=== PATIENT | female | born 1965 | race Hispanic/Latino ===

== ENCOUNTER 2017-12-22 05:43 | Emergency (ER) | payer BC, SELFPAY ==
--- NOTE | 2017-12-22 08:02 | RAD ---
LEFT KNEE 4 VIEWS: Date: 12/22/17 HISTORY: Left knee pain and swelling. FINDINGS: Degenerative changes are present. No fracture, dislocation, or bony destruction is identified. No justine nt effusion is seen. IMPRESSION: Left knee osteoarthritis. POS: OFF
--- NOTE | 2017-12-22 09:30 | ULT ---
PRELIMINARY REPORT/[facility]/EMERGENTY AFTER-HOURS PROCEDURE US Duplex Left Lower Extremity Veins CLINICAL HISTORY: 52 years old, female; Pain; Leg, lower and other: Left knee pain TECHNIQUE: Real-time duplex ultrasound scan of the left lower extremity veins integrating B-mode twodimensional vascular structure, Doppler spectral analysis, color flow Doppler imaging and compression. COMPARISON: No relevant prior studies available. FINDINGS: Deep veins: Normal. No DVT in the visualized common femoral, femoral, proximal deep femoral, poplitea l or calf veins. The veins demonstrate normal color flow, are normally compressible, with normal phas ic flow and/or augmentation response. Superficial veins: Normal. No thrombus in the visualized great saphenous vein. Soft tissues: No acute findings. No popliteal cyst. IMPRESSION: Normal left lower extremity duplex venous ultrasound. Thank you for allowing us to participate in the care of your patient. Dictated and Authenticated by: Thomas Davis MD 12/22/2017 7:11 AM Central Time ([place] & [place]) FINAL REPORT ULTRASOUND WITH DOPPLER DUPLEX VENOUS LOWER EXTREMITY LEFT: CPT: 26105 ICD-10-PCS: [id number] HISTORY: [] TECHNIQUE: Color flow Doppler, spectral waveform analysis of pulsed Doppler, and lopez-scale imaging with nevin vitaly and augmentation, were used to evaluate the bilateral common femoral, femoral, popliteal, accounting instructor ior tibial, and superficial femoral, veins; and the proximal portions of the profunda femoral and gre ater saphenous, veins. FINDINGS: I agree with the above provided preliminary interpretation from [facility]. IMPRESSION: No deep venous thrombosis of left lower extremity demonstrated. POS: [facility]
== END 2017-12-22 06:42 | disposition home or self-care (01) ==
LOC: ERS 05:43
DX: M25.462 Effusion, left knee (principal); F32.9 Major depressive disorder, single episode, unspecified; F17.210 Nicotine dependence, cigarettes, uncomplicated; Z79.899 Other long term (current) drug therapy

== ENCOUNTER 2018-07-24 12:49 | Emergency (ER) | payer SELFPAY ==
[2018-07-24] MEDS ORDERED: Ketorolac Tromethamine 30 MG/ML VIAL ONE (13:58)
--- NOTE | 2018-07-24 14:58 | RAD ---
LUMBAR SPINE 2 VIEWS: HISTORY: Low back pain. FINDINGS: There are 5 lumbar-type vertebrae. Prominent leftward convex rotator scoliotic curvature of the lowe r lumbar spine. Vertebral body heights are maintained. There is disk space narrowing at the L3-4 an d L4-5 levels. Grade I degenerative spondylolisthesis at the L4-5 level. Prominent osteophytosis of the facets at the lowest 3 levels. No acute fracture or dislocation. Calcification over the arteri al structures. IMPRESSION: 1. Degenerative changes lower lumbar spine. No evidence of compression fracture. 2. Atherosclerosis. POS: [facility]
== END 2018-07-24 14:46 | disposition home or self-care (01) ==
LOC: ERS 12:49
DX: M43.16 Spondylolisthesis, lumbar region (principal); M51.36 Other intervertebral disc degeneration, lumbar region; G62.9 Polyneuropathy, unspecified; F17.210 Nicotine dependence, cigarettes, uncomplicated
CPT/HCPCS: 72100; 96372; J1885

== ENCOUNTER 2018-10-07 06:31 | Emergency (ER) | payer SELFPAY | END 2018-10-07 08:53 | disposition home or self-care (01) | LOC: ERS 06:31 | DX: J20.9 Acute bronchitis, unspecified (principal); F32.9 Major depressive disorder, single episode, unspecified; F17.210 Nicotine dependence, cigarettes, uncomplicated | CPT/HCPCS: 87081; 87430; 87804; 99283 ==

== ENCOUNTER 2019-09-04 20:13 | Emergency (ER) | payer SELFPAY | END 2019-09-04 22:29 | disposition home or self-care (01) | LOC: ERS 20:13 | DX: J06.9 Acute upper respiratory infection, unspecified (principal); F32.9 Major depressive disorder, single episode, unspecified; F17.210 Nicotine dependence, cigarettes, uncomplicated | CPT/HCPCS: 87804; 99283 ==

== ENCOUNTER 2019-10-17 19:17 | Emergency (ER) | payer SELFPAY ==
[2019-10-17] MEDS ORDERED: Lidocaine 1% w/Epinephrine 1:100K 20 ML VIAL ONE (20:16)
[2019-10-17] MEDS ORDERED: Adacel (T-DAP) 0.5 ML SYRINGE ONE (20:53)
== END 2019-10-17 21:46 | disposition home or self-care (01) ==
LOC: ERS 19:17
DX: L02.412 Cutaneous abscess of left axilla (principal); F31.9 Bipolar disorder, unspecified; F43.10 Post-traumatic stress disorder, unspecified; F17.210 Nicotine dependence, cigarettes, uncomplicated; Z23 Encounter for immunization
CPT/HCPCS: 10061; 90471; 90715

== ENCOUNTER 2019-10-23 00:15 | Emergency (ER) | payer SELFPAY ==
[2019-10-23 01:16] LABS: #Eosinphils 0.3 thou/uL (0.0-0.7); #Lymphocytes 1.4 thou/uL (1.20-3.40); #Monocytes 0.5 thou/uL (0.11-0.59); #Neutrophils 4.1 thou/uL (1.40-6.50); %Basophils 0.8 % (0.0-1.0); %Eosinophils 4.1 % (0.0-10.0); %Lymphocytes 21.7 % (21.0-51.0); %Monocytes 7.5 % (0.0-10.0); %Neutrophils 65.9 % (42.0-75.0); Hemoglobin 12.1 g/dL (12.0-16.0); Mean Corpuscular HGB CONC 32.5 g/dL (32.0-36.0); Mean Corpuscular Hemoglobin 31.4 pg (27.0-31.0); Mean Corpuscular Volume 96.7 fL (78.0-98.0); Mean Platelet Volume 8.1 fL (7.4-10.4); Platelet Count 240 thou/uL (130-400); RBC Distribution Width 11.6 % (11.5-14.5); Red Blood Cell (RBC) Count 3.86 mill/uL (4.20-5.40); White Blood Cell (WBC) Count 6.2 thou/uL (4.8-10.8)
[2019-10-23 01:38] LABS: ALT (SGPT) 12 U/L (8-55); AST (SGOT) 12 U/L (5-34); Alkaline Phosphatase 76 U/L (40-110); Anion Gap 13 mmol/L (10-20); BUN (Urea Nitrogen) 14 mg/dL (9.8-20.1); Bilirubin, Total 0.2 mg/dL (0.2-1.2); Calc. Creatinine Clearance 0 mL/min (70-130); Calcium 8.5 mg/dL (7.8-10.44); Carbon Dioxide 24 mmol/L (22-29); Chloride 107 mmol/L (98-107); Estimated GFR-MDRD 76; Globulin 2.4 g/dL (2.4-3.5); Glucose 122 mg/dL (70-105); Potassium 3.5 mmol/L (3.5-5.1); Protein, Total 5.4 g/dL (6.0-8.3); Sodium 140 mmol/L (136-145)
[2019-10-23] MEDS ORDERED: Lidocaine 1% w/Epinephrine 1:100K 20 ML VIAL ONE (01:38)
--- NOTE | 2019-10-23 07:59 | CT ---
PRELIMINARY REPORT/[facility]/EMERGENCY AFTER HOURS PROCEDURE PROCEDURE: CT Scan Abdomen and Pelvis with IV Contrast Material. HISTORY: Fever and abscess. TECHNIQUE: Axial images were performed with multiplanar reconstructions. The patient was given iodin ated contrast intravenously. The patient was not given oral contrast material. COMPARISONS: None . FINDINGS: Clear lung bases. Liver, spleen, adrenals, and pancreas show no abnormality. Kidneys show no obstruction or masses. Normal biliary tract. No abdominal ascites or pneumoperitoneum. Mild atherosclerosis aorta. No lymphadenopathy. No bowel obstruction or inflammation. Appendix is not visualized. Pelvis shows small amount of flui d in the cul-de-sac. Unremarkable reproductive organs and urinary bladder. No pelvic masses. Moderate stranding anterior pelvic wall bilaterally with 3.6 cm loculated fluid collection could repr esent seroma, hematoma, or abscess just to the RIGHT of midline at the level of the acetabula. No acute bony abnormality. IMPRESSION: Loculated fluid collection subcutaneous fat RIGHT paramedian region inferior anterior pelvic wall wit h moderate stranding could be related to abscess, hematoma, or seroma. Small amount of fluid in the cul-de-sac. No other significant abnormality identified. ELECTRONICALLY SIGNED BY: Cliff Kumar MD October 23, 2019 1:36:14 AM CDT This report is intended for review by the ordering physician only, in accordance of law. If you recei ve this report in error, please call [facility] at [phone]. FINAL REPORT EXAM: CT ABDOMEN AND PELVIS HISTORY: Abdominal pain COMPARISON: None. Procedure: Multiple contiguous axial images were obtained and a CT of the abdomen and pelvis with IV contrast. C oronal reformats were performed. FINDINGS: Lower Chest: within normal limits. Vessels: Normal caliber aorta Heart: Normal heart size. No significant pericardial fluid Abdomen: Portal vein:Patent Gallbladder: No calcified gallstones. Normal caliber wall. Liver: within normal limits. Pancreas: within normal limits. Spleen: within normal limits. Adrenals: within normal limits. Kidneys: Symmetric enhancement. No obstructive uropathy. Peritoneum: No ascites or free air, no fluid collection. Bowel: Limited evaluation due to the lack of oral contrast administration. No evidence of bowel obstr uction. Ileocecal junction is unremarkable. Normal caliber appendix. Scattered fecal material in a nondistended, nondilated colon. Mesentery and Retroperitoneum: No enlarged mesenteric or retroperitoneal lymph nodes. Abdominal Wall: There is subcutaneous fat stranding involving the anterior abdominal wall. There is a n ill-defined hypodense collection in the anterior abdominal wall, just superior to the abdominal rectus muscle measuring 2.4 x 4.5 cm. Abnormal attenuation of the fat appears to be confined to the s oft tissues along the anterior abdominal wall. No abnormal attenuation deep to the abdominal rectus muscles. Pelvis: Reproductive Organs: Reproductive organs are unremarkable. Pelvis: No mass, lymphadenopathy, free air or free fluid. Mildly enlarged bilateral inguinal lymph no david are presumed to be reactive. Bladder: within normal limits. Bones: within normal limits. IMPRESSION: 1. This report is in agreement with initial report by [facility]. 2. Abnormal attenuation involving the anterior abdominal wall with slightly ill-defined borders. Deve loping abscess versus phlegmon are differential considerations. Resolving hematoma cannot be entirely excluded. Additional edema involving the subcutaneous fat is noted anteriorly, extending roshni ng the anterior right lower abdominal soft tissues. Transcribed Date/Time: 10/23/2019 9:09 AM
[2019-10-23] MEDS ORDERED: Iopamidol-370 76% 500 ML 1 ML ONE (09:02)
== END 2019-10-23 02:30 | disposition home or self-care (01) ==
LOC: ERS 00:15
DX: L02.211 Cutaneous abscess of abdominal wall (principal); F43.10 Post-traumatic stress disorder, unspecified; F17.210 Nicotine dependence, cigarettes, uncomplicated
CPT/HCPCS: 10061; 36415; 74177; 80053; 85025; Q9967

== ENCOUNTER 2019-10-25 17:39 | Emergency (ER) | payer SELFPAY ==
[~2019-10-25 17:39] MED LIST: Iopamidol 370 76% 100 ML VIAL ONE
[2019-10-25] MEDS ORDERED: Vancomycin 1 GM/200 ML BAG ONE (17:56)
[2019-10-25] MEDS ORDERED: Clindamycin/D5W 900 mg/50 ml Premix Bag ONE (17:56)
[2019-10-25 18:06] LABS: Base Excess-Venous 0.7 mmol/L (-2.0 to 3.0); Bicarbonate (HCO3v) 25.3 mmol/L (22.0-28.0); CO2 Tension (PvCO2) 39.6 mmHg (40.0-50.0); Calcium, Ionized 1.13 mmol/L (See Comments:); Chloride 105 mmol/L (98-107); Hemoglobin - Calc 14.4 g/dL (12.0-16.0); Potassium 3.3 mmol/L (3.5-5.1); Sodium 143 mmol/L (138-145); T. Carbon Dioxide 26.5 mmol/L (22.0-28.0); vO2 Saturation-calc 73.2 % (60.0-85.0)
[2019-10-25 18:07] LABS: #Eosinphils 0.2 thou/uL (0.0-0.7); #Lymphocytes 1.6 thou/uL (1.20-3.40); #Monocytes 0.5 thou/uL (0.11-0.59); #Neutrophils 5.3 thou/uL (1.40-6.50); %Basophils 0.5 % (0.0-1.0); %Eosinophils 2.6 % (0.0-10.0); %Lymphocytes 21.3 % (21.0-51.0); %Neutrophils 68.6 % (42.0-75.0); Hemoglobin 14.4 g/dL (12.0-16.0); Mean Corpuscular HGB CONC 33.4 g/dL (32.0-36.0); Mean Corpuscular Volume 95.9 fL (78.0-98.0); Mean Platelet Volume 7.7 fL (7.4-10.4); Platelet Count 337 thou/uL (130-400); RBC Distribution Width 11.8 % (11.5-14.5); Red Blood Cell (RBC) Count 4.48 mill/uL (4.20-5.40); White Blood Cell (WBC) Count 7.7 thou/uL (4.8-10.8)
[2019-10-25 18:14] LABS: Bilirubin Negative (Negative); Blood, Urine Negative (Negative); Clarity Clear (Clear); Glucose, Urine (Dipstick) Normal (Negative); Leukocyte Negative Leu/uL (Negative); Nitrite Negative (Negative); Protein, Urine (Dipstick) Negative (Neg-Trace); Urobilinogen Normal mg/dL (Less than 2)
--- NOTE | 2019-10-25 18:15 | RAD ---
Chest one view HISTORY: Sepsis. FINDINGS: Cardiac silhouette is magnified by projection. Pulmonary vasculature is unremarkable. Lungs are well-inflated. No confluent airspace consolidation or evidence of pneumothorax. IMPRESSION : No active cardiopulmonary abnormalities are demonstrated.
[2019-10-25 18:25] LABS: ALT (SGPT) 13 U/L (8-55); AST (SGOT) 15 U/L (5-34); Albumin 3.4 g/dL (3.5-5.0); Alkaline Phosphatase 83 U/L (40-110); Anion Gap 14 mmol/L (10-20); BUN (Urea Nitrogen) 5 mg/dL (9.8-20.1); Bilirubin, Total 0.5 mg/dL (0.2-1.2); Calc. Creatinine Clearance 0 mL/min (70-130); Calcium 8.9 mg/dL (7.8-10.44); Carbon Dioxide 24 mmol/L (22-29); Chloride 108 mmol/L (98-107); Estimated GFR-MDRD 82; Globulin 2.6 g/dL (2.4-3.5); Glucose 102 mg/dL (70-105); Potassium 3.4 mmol/L (3.5-5.1); Sodium 143 mmol/L (136-145)
--- NOTE | 2019-10-25 18:44 | CT ---
CT abdomen and pelvis with IV contrast HISTORY: Abdominal pain. Abdominal abscess. COMPARISON: 10/23/2019. FINDINGS: Mild linear atelectasis is now present at the anterior lung bases. Solid organs of the abdo men are intact. Circumaortic left renal vein is noted. Small amount of gas within a posterior disc protrusion at the L3-4 level of the lumbar spine. No evidence of bowel obstruction or inflammation. The area of soft tissue inflammation involving the anterior right lower quadrant is less well-defined than on the prior study. The fluid cavity is now nearly completely decompressed. It extends over a total length of 6.1 cm, but is only 1.2 cm greatest diameter on the axial images. Small amount of int ernal gas consistent with interval drainage. No invasion of the underlying abdominal wall musculature. IMPRESSION : Interval decompression and decrease in size of the inflammatory fluid collection in the right lower q uadrant anterior subcutaneous tissues. Internal gas from interval drainage. No evidence of further complication. Small posterior disc herniation/protrusion at the L3-4 level.
== END 2019-10-25 20:18 | disposition left against medical advice (07) ==
LOC: ERS 17:39
DX: A41.9 Sepsis, unspecified organism (principal); L02.211 Cutaneous abscess of abdominal wall; F43.10 Post-traumatic stress disorder, unspecified; F31.9 Bipolar disorder, unspecified; F17.210 Nicotine dependence, cigarettes, uncomplicated; Z79.899 Other long term (current) drug therapy
CPT/HCPCS: 71045; 74177; 80053; 81003; 82330; 82803; 83605; 85025; 87040; 87086; 93005; 96360; 96361; 96365; 96367; A4353; J3370; J3490; Q9967

== ENCOUNTER 2019-10-26 01:01 | Inpatient (IN) | payer SELFPAY ==
[2019-10-26] MEDS ORDERED: Potassium Chloride 20 MEQ TAB PO SCH ×3 (01:45→08:00)
[2019-10-26] MEDS ORDERED: HYDROcodone/Acetaminophen 7.5/325 mg Tablet PO PRN ×3 (02:47→03:47)
[2019-10-26] MEDS ORDERED: Acetaminophen 325 MG TAB PO PRN (02:47)
[2019-10-26] MEDS ORDERED: Senokot S 8.6-50 MG TAB PO PRN ×2 (02:47→03:47)
[2019-10-26] MEDS ORDERED: Melatonin 3 MG TAB PO PRN ×2 (02:49→03:47)
[2019-10-26] MEDS ORDERED: Clindamycin/D5W 600 MG in Premix Bag 1 BAG IVPB SCH (03:00)
[2019-10-26] MEDS ORDERED: Nicotine 14 MG PATCH TD SCH (03:00)
[2019-10-26] MEDS ORDERED: Sodium Chloride 0.9% 1,000 ML IV SCH (03:00)
--- NOTE | 2019-10-26 03:12 | PDOC.HHP ---
Hospitalist HPI - History of Present Illness abdominal wall abscess/hypotension History of Present Illness: 54F reports to the ED for evaluation of abdominal wall abscess and surrounding cellulitis. Has been seen in this ED several times to have the abscess drained and packed. Came back earlier on 10/24 c/o of increased pain and was hypotensive on arrival. Patient was given 30mls/kg of NS, and IV abx and then admitted for cellulitis. Patient signed herself out AMA to go home and feed her dog and take a shower. She appeared several hours later to be admitted. She reports 2 small areas of erythema and edema appeared on 10/16, she was seen in the ED, both abscesses were drained, one under her left arm and one on her lower abdomen. She was given an RX for clindamycin on that visit. The abscess on her abdomen increased in size and became more painful so she came to the ED on 10/22 where it was drained again. She came back on 10/24 with pain to the abdomen wall. She states the swelling and redness has improved but it is still very painful. She was hypotensive and will be admitted for cellulitis and possible sepsis. ED Course: CT scan of the abdomen and pelvis shows abdominal wall cellulitis but no evidence of a drainage fluid collection. It was compared to CT on 10/22 and area has improved from that scan. She was given fluids, IV abx and pain meds. Hospitalist ROS - Review of Systems Constitutional: reports: fever, chills Eyes: denies: pain, vision change, conjunctivae inflammation, eyelid inflammation, redness, other ENT: denies: ear pain, ear discharge, nose pain, nose discharge, nose congestion , mouth pain, mouth swelling, throat pain, throat swelling, other Respiratory: denies: cough, dry, shortness of breath, hemoptysis, SOB with excertion, pleuritic pain, sputum, wheezing, other Cardiovascular: denies: chest pain, palpitations, orthopnea, paroxysmal noc. dyspnea, edema, light headedness, other Gastrointestinal: reports: nausea Genitourinary: denies: dysuria, frequency, incontinence, hematuria, retention, other Musculoskeletal: denies: neck pain, shoulder pain, arm pain, back pain, hand pain, leg pain, foot pain, other Skin: reports: other (swelling and redness with hardness to right lower abdomen , painful to touch or with movement.) Neurological: denies: weakness, numbness, incoordination, change in speech, confusion, seizures, other - Medication Medications: None Hospitalist History - Past Medical History Cardiac: reports: no pertinent history Pulmonary: reports: no pertinent history 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 Gastrointestinal: reports: no pertinent history Psych: reports: no pertinent history Infectious Disease: reports: no pertinent history ENT: reports: no pertinent history Endocrine: reports: no pertinent history - Past Surgical History Past Surgical History: reports: Tubal Ligation - Family History Family History: reports: no pertinent history - Social History Smoking Status: Current every day smoker Tobacco Type: cigarettes Alcohol: reports: None Drugs: reports: none Living Situation: With Family - Exam General Appearance: NAD, awake alert Eye: PERRL ENT: normocephalic atraumatic, moist mucosa Neck: supple, no JVD Heart: RRR, no murmur Respiratory: CTAB, normal chest expansion Gastrointestinal: soft, non-distended, normal bowel sounds Extremities: no edema Skin: normal turgor Skin - other findings: 6x6cm area of erythema and warmth with a 3cm area of induration RLQ Neurological: cranial nerve grossly intact, no focal deficits Musculoskeletal: normal tone Hospitalist H&P A/P - Problem (1) Cellulitis Code(s): L03.90 - CELLULITIS, UNSPECIFIED Status: Acute (2) Hypokalemia Code(s): E87.6 - HYPOKALEMIA Status: Acute (3) Hypotension Status: Resolved (4) Smoker Code(s): F17.200 - NICOTINE DEPENDENCE, UNSPECIFIED, UNCOMPLICATED Status: Acute - Plan Plan: IV fluids NS at 75ml/hr Cleocin 600mg IVPB q8h Replace K, recheck in AM Recheck Comp met and CBC in am Wound care consult Bacterial culture for wound ordered BC x2 ordered in ED Urine culture ordered Nicotine patch qd DVT and GI prophylaxis start Case discussed with Dr. Monte, agrees to plan
[2019-10-26] MEDS: Sodium Chloride 0.9% 1,000 ML IV SCH ×2 (03:57→17:15)
[2019-10-26] MEDS: Acetaminophen 325 MG TAB PO PRN ×2 (03:57→08:06)
[2019-10-26] MEDS: Clindamycin/D5W 600 MG in Premix Bag 1 BAG IVPB SCH ×3 (03:57→20:51)
[2019-10-26] MEDS: Nicotine 14 MG PATCH TD SCH (03:59)
[2019-10-26] MEDS: Potassium Chloride 20 MEQ TAB PO SCH (08:07)
[2019-10-26] MEDS: Famotidine 20 MG TAB PO SCH ×2 (08:07→20:52)
[2019-10-26] MEDS: Enoxaparin Sodium 30 MG/0.3 ML SYRINGE SC SCH (08:08)
[2019-10-26] MEDS ORDERED: Enoxaparin Sodium 30 MG/0.3 ML SYRINGE SC SCH (09:00)
[2019-10-26] MEDS ORDERED: Famotidine 20 MG TAB PO SCH (09:00)
[2019-10-26 09:49] VITALS: BMI 23.4
[2019-10-26] MEDS: HYDROcodone/Acetaminophen 7.5/325 mg Tablet PO PRN (13:24)
[2019-10-26] MEDS ORDERED: clonazePAM 1 MG TAB PO PRN (21:05)
[2019-10-26 22:26] LABS: Cocaine Metabolite Screen Detected (NotDetected); Medtox Reader # READER 1; Opiate Screen Detected (NotDetected)
[2019-10-26 22:27] LABS: Amphetamine Not Detected (NotDetected); Barbiturates Screen Not Detected (NotDetected); Benzodiazepine Screen Not Detected (NotDetected); Medtox Control Line Valid? VALID (VALID); Methadone Not Detected (NotDetected); Methamphetamine Not Detected (NotDetected); Oxycodone Screen Not Detected (NotDetected); Phencyclidine (PCP) Not Detected (NotDetected); THC/Cannabinoid Screen Not Detected (NotDetected); Tricyclic Screen Not Detected (NotDetected)
[2019-10-27] MEDS: Nicotine 14 MG PATCH TD SCH (04:20)
[2019-10-27] MEDS: Clindamycin/D5W 600 MG in Premix Bag 1 BAG IVPB SCH ×3 (04:22→20:14)
[2019-10-27 05:56] LABS: Anion Gap 9 mmol/L (10-20); BUN (Urea Nitrogen) 6 mg/dL (9.8-20.1); Calc. Creatinine Clearance 94 mL/min (70-130); Calcium 8.1 mg/dL (7.8-10.44); Carbon Dioxide 25 mmol/L (22-29); Chloride 112 mmol/L (98-107); Estimated GFR-MDRD 79; Glucose 100 mg/dL (70-105); Potassium 4.3 mmol/L (3.5-5.1); Sodium 142 mmol/L (136-145)
[2019-10-27] MEDS: Sodium Chloride 0.9% 1,000 ML IV SCH ×2 (06:05→20:17)
[2019-10-27] MEDS: Potassium Chloride 20 MEQ TAB PO SCH (08:00)
[2019-10-27] MEDS: Enoxaparin Sodium 30 MG/0.3 ML SYRINGE SC SCH (08:05)
[2019-10-27] MEDS: Famotidine 20 MG TAB PO SCH ×2 (08:05→20:17)
--- NOTE | 2019-10-27 09:31 | PDOC.HOSPP ---
- Subjective Encounter Date: 10/27/19 Encounter Time: 09:15 Subjective: f/u for abd wall abscess x 2 receiving local WCT, packing and Cleocin IV. c/o pain at site of the abscess but no fever. Concerned about managing the wound at home. - Objective Vital Signs & Weight: Vital Signs (12 hours) Temp Pulse Resp BP Pulse Ox 10/27/19 07:55 97.8 F 62 16 123/77 97 10/27/19 04:25 97.9 F 62 16 106/66 95 10/26/19 23:42 98.0 F 74 18 98/59 L 96 Weight Admit Weight 158 lb 4.8 oz Weight 158 lb 4.8 oz I&O: 10/26/19 10/27/19 10/28/19 06:59 06:59 06:59 Intake Total 3533 Balance 3533 Result Diagrams: 10/27/19 05:33 Additional Labs: Microbiology 10/25/19 18:00 Urine Straight Catheter Urine Culture - Preliminary NO GROWTH AT 24 HOURS 10/25/19 17:53 Venous blood - Right Hand Blood Culture - Preliminary Specimen has been received and culture in progress. No Growth to date. 10/25/19 17:53 Venous blood - Left Arm Blood Culture - Preliminary Specimen has been received and culture in progress. No Growth to date. Radiology Reviewed by me: Yes (CT abd - interval decrease in fluid mass RLQ) Hospitalist ROS - Medication Medications: Active Medications Generic Name Dose Route Start Last Admin Trade Name Freq PRN Reason Stop Dose Admin Acetaminophen 650 mg 10/26/19 03:46 10/26/19 08:06 Tylenol PO 650 mg Q4H PRN Administration Headache/Fever/Mild Pain (1-3) Hydrocodone Bitart/Acetaminophen 2 tab 10/26/19 03:47 10/26/19 13:24 [place] 7.5/325 PO 2 tab Q4H PRN Administration Severe Pain (7-10) Enoxaparin Sodium 30 mg 10/26/19 09:00 10/27/19 08:05 Lovenox SC 30 mg 0900 ARTURO Administration Famotidine 20 mg 10/26/19 09:00 10/27/19 08:05 Pepcid PO 20 mg BID ARTURO Administration Sodium Chloride 1,000 mls @ 75 mls/hr 10/26/19 04:00 10/27/19 06:05 Normal Saline 0.9% IV 1,000 mls .[id number] ARTURO Administration Clindamycin Phosphate/Dextrose 50 mls @ 100 mls/hr 10/26/19 04:00 10/27/19 04 :22 600 mg/ Device IVPB 50 mls 0400,1200,2000 ARTURO Administration Nicotine 14 mg 10/26/19 04:00 10/27/19 04:20 Nicoderm Patch TD 14 mg Q24HR ARTURO Administration Potassium Chloride 40 meq 10/26/19 08:00 10/27/19 08:00 K-Dur PO 40 meq QAM-WM ARTURO Administration - Exam General Appearance: NAD, awake alert Eye: PERRL, anicteric sclera ENT: normocephalic atraumatic, no oropharyngeal lesions Neck: supple, symmetric, no JVD, no thyromegaly Heart: RRR, no murmur, no gallops, no rubs, normal peripheral pulses Heart - other findings: S1, S2 Respiratory: CTAB, no wheezes, no rales, no ronchi, normal chest expansion Gastrointestinal: soft, non-distended, normal bowel sounds, no guarding Extremities: no cyanosis, no clubbing, no edema Skin: normal turgor Skin - other findings: Abd wall with two abscesses, peripheral firm induration, decreased erythema Neurological: cranial nerve grossly intact, no new deficit Musculoskeletal: normal tone, normal strength, no muscle wasting Psychiatric: normal affect, A&O x 3 Hosp A/P (1) Abdominal wall abscess Code(s): L02.211 - CUTANEOUS ABSCESS OF ABDOMINAL WALL Status: Acute Plan: Continue IV Cleocin, add Vancomycin 1.25gm IV q12h, WCT for wound packing exchange, pain control (2) Cellulitis Code(s): L03.90 - CELLULITIS, UNSPECIFIED Status: Acute Qualifiers: Site of cellulitis of trunk: abdominal wall Plan: See above #1 (3) Tobacco abuse Code(s): Z72.0 - TOBACCO USE Status: Chronic Plan: Tobacco cessation resources (4) Cocaine use Code(s): F14.90 - COCAINE USE, UNSPECIFIED, UNCOMPLICATED Status: Acute (5) Hypokalemia Code(s): E87.6 - HYPOKALEMIA Status: Acute Plan: Resolving - Plan continue antibiotics, social work msw, out of bed/ambulate, DVT proph w/SCDs Stable currently Continue Cleocin IV Add Vancomycin 1.25gm IV q12h WCT for local care and wound packing exchange OOB/Ambulate Convert to inpt status for wound mgmt, extension of IV abx coverage, WCT AM lab: BMP, A1C
[2019-10-27] MEDS: HYDROcodone/Acetaminophen 7.5/325 mg Tablet PO PRN (10:01)
[2019-10-27] MEDS: Vancomycin HCl 1.25 GM in Sodium Chloride 0.9% 250 ML 250 ML IVPB SCH ×2 (10:03→22:16)
[2019-10-28] MEDS: Acetaminophen 325 MG TAB PO PRN ×2 (00:52→08:05)
[2019-10-28] MEDS: Nicotine 14 MG PATCH TD SCH (03:55)
[2019-10-28] MEDS: Clindamycin/D5W 600 MG in Premix Bag 1 BAG IVPB SCH ×2 (03:55→12:06)
[2019-10-28 06:47] LABS: Hemoglobin A1c 5.3 % (4.0-6.0)
[2019-10-28 07:01] LABS: Anion Gap 11 mmol/L (10-20); BUN (Urea Nitrogen) 7 mg/dL (9.8-20.1); Calc. Creatinine Clearance 94 mL/min (70-130); Calcium 8.2 mg/dL (7.8-10.44); Carbon Dioxide 25 mmol/L (22-29); Chloride 108 mmol/L (98-107); Estimated GFR-MDRD 79; Glucose 90 mg/dL (70-105); Potassium 4.5 mmol/L (3.5-5.1); Sodium 139 mmol/L (136-145)
[2019-10-28 07:13] VITALS: BP 138/89; TEMP 97.8
[2019-10-28] MEDS: Enoxaparin Sodium 30 MG/0.3 ML SYRINGE SC SCH (08:01)
[2019-10-28] MEDS: Famotidine 20 MG TAB PO SCH (08:01)
[2019-10-28] MEDS: Potassium Chloride 20 MEQ TAB PO SCH (08:01)
[2019-10-28] MEDS: Vancomycin HCl 1.25 GM in Sodium Chloride 0.9% 250 ML 250 ML IVPB SCH (09:56)
[2019-10-28] MEDS: Sodium Chloride 0.9% 1,000 ML IV SCH (09:57)
[2019-10-28] MEDS ORDERED: Clindamycin 150 MG CAP PO SCH (20:00)
--- NOTE | 2019-10-29 02:49 | DIS ---
DATE OF ADMISSION: 10/26/2019 DATE OF DISCHARGE: 10/28/2019 DISCHARGE DIAGNOSES: 1. Abdominal wall abscess x2, status post incision and drainage without dominant organism identified. 2. Abdominal wall cellulitis secondary to number one, improved. 3. Tobacco abuse. 4. Cocaine use. 5. Hypokalemia, resolved. CONSULTATIONS: Wound Care Service. PERTINENT LABORATORY AND X-RAY FINDINGS: Potassium ranged between 3.4 to 4.5, hemoglobin A1c 5.3. Urine drug screen positive for opiates and cocaine. Wound culture dated 10/27/2019, showed mixed culture. CT of the abdomen and pelvis dated 10/25/2019, showed interval decompression and decrease in size of inflammatory fluid collection in the right lower quadrant anterior subcutaneous tissues. HOSPITAL COURSE: The patient was admitted to the medical floor after initially presenting with lower abdominal wall abscess with associated cellulitis. The patient is status post incision and drainage with iodoform packing placed in the emergency room. The patient was given IV Cleocin 600 mg q.8 hours and received local wound care by the wound care team. Wound cultures from the area did not reveal a dominant organism and the patient clinically improved and stabilized with IV antibiotic therapy. The patient received local wound care with directions on self care after returning home. Overall, the patient did remain clinically stable during the hospital course, tolerating regular oral intake with stable vital signs. I have examined the patient at the time of discharge and discussed followup instructions. The patient verbalized understanding and agreement ready for discharge on 10/28/2019. DISCHARGE MEDICATIONS: Clindamycin 600 mg p.o. t.i.d. x7 days. FOLLOWUP: The patient may follow up with Dr. Johan Valdivia within 7 days of discharge. CONDITION ON DISCHARGE: Stable. ACTIVITY: Ad-aileen. DIET: Regular. SPECIAL INSTRUCTIONS: Sitz bath 3 to 5 times per day with irrigation of the abdominal wound. CODE STATUS: Full. DISPOSITION: Home on 10/28/2019. TIME SPENT: Total time preparing and coordinating discharge, 32 minutes. Job ID: [id number]
--- NOTE | 2019-10-29 07:58 | PQF ---
Diana Cotton CHARLES DO [id number] CLINICAL DOCUMENTATION CLARIFICATION FORM: POST DISCHARGE Addendum to original discharge summary date: ____ Late entry note date: __ DATE: 10/29/2019 ATTN: Omero Hernandez Please exercise your independent, professional judgment in responding to the clarification form. Clinical indicators are provided on the bottom of this form for your review Please check appropriate box(s) to clarify if the following diagnosis has been ruled in or ruled out: Sepsis [ ] Ruled in diagnosis [ ] Continue to treat [ ] Resolved [ x ] Ruled out diagnosis [ ] Cannot rule out diagnosis [ ] Other diagnosis [ ] Unable to determine For continuity of documentation, please document condition throughout progress notes and discharge summary. Thank You. CLINICAL INDICATORS - SIGNS / SYMPTOMS / LABS Abdominal bacterial culture 10/26 No growth Vital signs 10/25 BP 110/58, Pulse 78, Resp 18, Temp 98 ED notes p2 10/25 admitted for Abd wall abscess and Sepsis today ED notes p2 10/25 SIRS scoring; yes did meet at least 1 criteria ED notes p4 10/25 Pt reports abscess is painful and itchy, reports fever H&P p1 10/25 She was hypotensive and will be admitted for cellulitis and possible sepsis RISK FACTORS H&P p3 10/25 Current smoker H&P p3 10/25 cellulitis abdominal wall H&P p3 10/25 Abscess of abdominal wall TREATMENTS MAR 10/25 IV Clindamycin 600 mg MAR 10/25 IVF NS 1L MAR 10/26 IV Vancomycin 1.25 gm Abdominal bacterial culture 10/26 (This form is maintained as a part of the permanent medical record) 2014 [employer]. All Rights Reserved [email or web address]
== END 2019-10-28 18:34 | disposition home or self-care (01) | DRG 603 ==
LOC: ERS 01:01 → T4-B 01:47 → OBSVTOIN 01:47 → ERS 03:10
PROVIDERS: ADMIT Internal Medicine; ATTEND Internal Medicine
DX: L02.211 Cutaneous abscess of abdominal wall (principal); L03.311 Cellulitis of abdominal wall; E87.6 Hypokalemia; F17.210 Nicotine dependence, cigarettes, uncomplicated; I95.9 Hypotension, unspecified; Z98.51 Tubal ligation status
CPT/HCPCS: 36415; 80048; 80306; 83036; 87070; 87205; 99284; J1650; J3370; J3490; J7050